=== PATIENT | female | born 1965 | race Caucasian/White ===

== ENCOUNTER 2017-12-14 09:07 | Outpatient (CLI) | payer BC | END 2017-12-14 09:08 | disposition home or self-care (01) | LOC: BICMAMMO 09:07 | PROVIDERS: ATTEND Obstetrics & Gynecology | DX: Z12.31 Encounter for screening mammogram for malignant neoplasm of breast (principal) | CPT/HCPCS: 77063; 77067 ==

== ENCOUNTER 2018-08-31 14:43 | Outpatient (CLI) | payer BC ==
--- NOTE | 2018-08-31 16:06 | RAD ---
THREE VIEWS LEFT FOOT: Comparison: None. History: Left foot pain after stepping off a ladder wrong four weeks ago. FINDINGS: Three views of the left foot shows no evidence of acute fracture or dislocation. No degenerative diaz ges are seen. No soft tissue swelling is present. IMPRESSION: No evidence of acute osseous abnormality. POS: [facility]
== END 2018-08-31 14:44 | disposition home or self-care (01) ==
LOC: BICRAD 14:43
PROVIDERS: ATTEND Family Medicine
DX: M79.672 Pain in left foot (principal)

== ENCOUNTER 2021-02-06 14:53 | Outpatient (CLI) | payer BC, OTHER | END 2021-02-06 14:54 | disposition home or self-care (01) | LOC: BICMAMMO 14:53 | PROVIDERS: ATTEND Obstetrics & Gynecology | DX: Z13.820 Encounter for screening for osteoporosis (principal); M85.851 Other specified disorders of bone density and structure, right thigh; M85.852 Other specified disorders of bone density and structure, left thigh | CPT/HCPCS: 77080 ==